=== PATIENT | female | born 1990 | race Caucasian/White ===

== ENCOUNTER 2017-12-05 23:11 | Emergency (ER) | payer OTHER | END 2017-12-06 00:49 | disposition home or self-care (01) | LOC: FTE 23:11 | DX: L02.811 Cutaneous abscess of head [any part, except face] (principal) | CPT/HCPCS: 99283; Z7502 ==

== ENCOUNTER 2017-12-18 15:28 | Emergency (ER) | payer OTHER | END 2017-12-18 16:38 | disposition home or self-care (01) | LOC: FTE 15:28 | DX: G50.0 Trigeminal neuralgia (principal) | CPT/HCPCS: 99283; Z7502 ==